=== PATIENT | female | born 1960 | race Caucasian/White ===

== ENCOUNTER → 2017-02-20 | Outpatient (CLI) | payer MEDICARE, OTHER ==
[2017-02-20 13:02] LABS: ABSOLUTE EOSINOPHILS # (AUTO) 0.1 10^3/uL (0.0-0.6); ABSOLUTE MONOCYTES (AUTO) 0.3 10^3/uL (0.1-1.4); ABSOLUTE NEUT (AUTO) 3.8 10^3/uL (1.7-8.2); BASOPHILS % (AUTO) 0.8 % (0-2); EOSINOPHILS % (AUTO) 1.2 % (0-6); HEMATOCRIT 43.9 % (36.0-47.0); HEMOGLOBIN 14.9 g/dL (12.0-15.5); HGB HCT DIFFERENCE 0.8; LYMPHOCYTES % (AUTO) 32.2 % (13-45); MEAN CORPUSCULAR HEMOGLOBIN 29.7 pg (27.0-33.4); MEAN CORPUSCULAR HGB CONC 33.9 g/dL (32.0-36.0); MEAN CORPUSCULAR VOLUME 88 fl (80-97); MONOCYTES % (AUTO) 5.4 % (3-13); RED BLOOD COUNT 5.02 10^6/uL (3.72-5.28); RED CELL DISTRIBUTION WIDTH 13.4 % (11.5-14.0); SEGMENTED NEUTROPHILS % (AUTO) 60.4 % (42-78); WHITE BLOOD COUNT 6.3 10^3/uL (4.0-10.5)
[2017-02-20 13:05] LABS: APPEARANCE,URINE CLEAR; BILIRUBIN,URINE NEGATIVE (NEGATIVE); GLUCOSE, URINE NEGATIVE (NEGATIVE); KETONES,URINE NEGATIVE (NEGATIVE); LEUKOCYTE ESTERASE,URINE NEGATIVE (NEGATIVE); NITRITE,URINE NEGATIVE (NEGATIVE); PROTEIN,URINE NEGATIVE (NEGATIVE); URINE SPECIFIC GRAVITY 1.011; UROBILINOGEN,URINE NEGATIVE mg/dL (<2.0)
[2017-02-20 13:06] LABS: PROTHROMBIN TIME 11.9 SEC (11.4-15.4)
[2017-02-20 13:07] LABS: PARTIAL THROMBOPLASTIN TIME 28.4 SEC (23.5-35.8)
== END ==
LOC: OD 11:59
PROVIDERS: ATTEND Pain Medicine Interventional Pain Medicine
DX: Z79.1 Long term (current) use of non-steroidal anti-inflammatories (NSAID) (principal)
CPT/HCPCS: 36415; 81001; 85025; 85610; 85730

== ENCOUNTER 2017-03-31 06:13 | Day surgery (SDC) | payer MEDICARE, OTHER ==
[2017-03-27 09:05] LABS: ABSOLUTE EOSINOPHILS # (AUTO) 0.1 10^3/uL (0.0-0.6); ABSOLUTE LYMPHOCYTES (AUTO) 1.7 10^3/uL (0.5-4.7); ABSOLUTE MONOCYTES (AUTO) 0.4 10^3/uL (0.1-1.4); ABSOLUTE NEUT (AUTO) 3.2 10^3/uL (1.7-8.2); BASOPHILS % (AUTO) 0.7 % (0-2); EOSINOPHILS % (AUTO) 1.5 % (0-6); HEMOGLOBIN 15.1 g/dL (12.0-15.5); HGB HCT DIFFERENCE 1.3; LYMPHOCYTES % (AUTO) 31.1 % (13-45); MEAN CORPUSCULAR HEMOGLOBIN 30.4 pg (27.0-33.4); MEAN CORPUSCULAR HGB CONC 34.3 g/dL (32.0-36.0); MEAN CORPUSCULAR VOLUME 89 fl (80-97); MONOCYTES % (AUTO) 7.1 % (3-13); RED BLOOD COUNT 4.96 10^6/uL (3.72-5.28); RED CELL DISTRIBUTION WIDTH 13.6 % (11.5-14.0); SEGMENTED NEUTROPHILS % (AUTO) 59.6 % (42-78); WHITE BLOOD COUNT 5.3 10^3/uL (4.0-10.5)
[2017-03-27 09:10] LABS: APPEARANCE,URINE SLIGHTLY-CLOUDY; BILIRUBIN,URINE NEGATIVE (NEGATIVE); GLUCOSE, URINE NEGATIVE (NEGATIVE); KETONES,URINE NEGATIVE (NEGATIVE); LEUKOCYTE ESTERASE,URINE NEGATIVE (NEGATIVE); NITRITE,URINE NEGATIVE (NEGATIVE); PROTEIN,URINE NEGATIVE (NEGATIVE); URINE SPECIFIC GRAVITY 1.026; UROBILINOGEN,URINE NEGATIVE mg/dL (<2.0)
[2017-03-27 09:17] LABS: PROTHROMBIN TIME 12.1 SEC (11.4-15.4)
[2017-03-27 09:18] LABS: PARTIAL THROMBOPLASTIN TIME 29.6 SEC (23.5-35.8)
--- NOTE | 2017-03-27 09:33 | RADIOLOGY REPORT (SQ) ---
EXAM DESCRIPTION: CHEST PA/LATERAL COMPLETED DATE/TIME: 03/27/2017 9:14 am REASON FOR STUDY: PRE OP COMPARISON: AP chest 11/10/2011 EXAM PARAMETERS: NUMBER OF VIEWS: two views TECHNIQUE: Digital Frontal and Lateral radiographic views of the chest acquired. RADIATION DOSE: NA LIMITATIONS: none FINDINGS: LUNGS AND PLEURA: Upper lobes are hyperinflated from obstructive lung disease. Flattening in the hemidiaphragms. No opacities, masses or pneumothorax. No pleural effusion. MEDIASTINUM AND HILAR STRUCTURES: No masses or contour abnormalities. HEART AND VASCULAR STRUCTURES: Heart normal size. No evidence for failure. BONES: Lower cervical fusion HARDWARE: Clips right upper quadrant post cholecystectomy OTHER: No other significant finding. IMPRESSION: Obstructive lung disease TECHNICAL DOCUMENTATION: JOB ID: [id number] [employer]- All Rights Reserved
--- NOTE | 2017-03-27 12:47 | EKG REPORT ---
SEVERITY:- NORMAL ECG - SINUS RHYTHM : Confirmed by: Magdalene Reynolds 27-Mar-2017 12:47:04
[~2017-03-31 06:13] MED LIST: CEFAZOLIN 1 GM/D5W RTU 1 GM/50 ML RTUPB IV PRN; LACTATED RINGERS 1000 ML IV PRN; LIDOCAINE 0.5% INJ-PF (5 MG/ML) 50 ML SDV SUBCUT PRN
[2017-03-31] MEDS ORDERED: FENTANYL CITRATE INJ/PF 100 MCG/2 ML AMPUL ONE ×2 (06:43)
[2017-03-31] MEDS ORDERED: MIDAZOLAM 2 MG/2 ML INJ ONE (06:43)
[2017-03-31] MEDS ORDERED: PROPOFOL INJ 200 MG/20 ML VIAL IV ONE (06:44)
[2017-03-31] MEDS ORDERED: LIDOCAINE 1% INJ-PF (10 MG/ML) 30 ML SDV ONE ×2 (06:44→07:50)
[2017-03-31] MEDS ORDERED: DEXMEDETOMIDINE INJ 80 MCG/20 ML VIAL IV ONE (06:44)
[2017-03-31] MEDS ORDERED: BUPIVACAINE HCL 0.5%-EPI 1:200000 INJ/PF 30 ML VIAL ONE ×2 (07:48→07:50)
[2017-03-31] MEDS ORDERED: SODIUM BICARBONATE 8.4% INJ 50 MEQ/50 ML DISP.SYRIN ONE (08:00)
[2017-03-31] MEDS ORDERED: FENTANYL CITRATE INJ/PF 100 MCG/2 ML AMPUL IV PRN ×3 (08:08)
[2017-03-31] MEDS ORDERED: PROMETHAZINE HCL INJ 25 MG/1 ML VIAL IV PRN ×2 (08:08)
[2017-03-31] MEDS ORDERED: MORPHINE SULFATE 10 MG/ML INJ IV PRN (08:08)
[2017-03-31] MEDS ORDERED: OXYCODONE-ACETAMINOPHEN 5-325 MG TABLET PO PRN ×2 (08:08)
[2017-03-31] MEDS ORDERED: DIPHENHYDRAMINE HCL 50 MG/ML VIAL IV PRN (08:08)
[2017-03-31] MEDS ORDERED: MEPERIDINE HCL/PF INJ 25 MG/1 ML DISP.SYRIN IV PRN (08:08)
[2017-03-31] MEDS ORDERED: CEFAZOLIN INJ 1 GM VIAL ONE (09:41)
[2017-03-31] MEDS ORDERED: OXYCODONE HCL IR 5 MG TABLET PO PRN (09:51)
--- NOTE | 2017-03-31 10:45 | OPERATIVE REPORT E ---
Operative Report NAME: RAYMUNDO ALONSO : 1960 AGE: 56Y DATE OF SURGERY: 03/31/2017 ROOM: PREOPERATIVE DIAGNOSIS: Post lumbar laminectomy pain syndrome. POSTOPERATIVE DIAGNOSIS: Post lumbar laminectomy pain syndrome. PROCEDURES PERFORMED: Percutaneous dual Octrode implantation with implantable pulse generator [employer] system. SURGEON: PABLO BOSE M.D. OPERATIVE DETAIL: The patient was accompanied by anesthesia staff to the operative suite where she was placed in prone position. All pressure points were checked and padded. Standard A-line monitors were applied. Perioperative Ancef was given. The patient was prepped and draped in sterile fashion using chlorhexidine gluconate solution, Ioban, and a universal drape. Additionally, a C-arm was draped into the field in sterile fashion. Planned implant insert sites were marked over the left buttock and midline incision site marked where previous needle insertions were just above the patient's previous laminectomy scar. Appropriate timeout was performed as per [facility] standards. The skin was anesthetized with buffered 1% lidocaine using a 25-gauge needle in both locations and deeper tissues were subsequently infiltrated with 0.25% Marcaine with epinephrine 1:100,000. Incision was made using an 11-blade scalpel in the midline and then blunt and electrocautery dissection were utilized to expose the prevertebral fascia. Adequate hemostasis was ensured. At this juncture, fluoroscopy was used to identify the previously marked T12-L1 interspace. A 3.5 inch, 25-gauge spinal needle was advanced using the planned tract for needle insertion site and anesthetized with 1% lidocaine. A Tuohy needle 17-gauge provided by the [employer] kit was advanced under intermittent AP and lateral fluoroscopic guidance to the T12-L1 interspace using a loss of resistance technique to normal saline. Once loss of resistance was obtained, the shielded MRI compatible Octrode lead was advanced through the needle easily into the posterior epidural space. The procedure was performed in the exact same fashion on the opposite side for 2 final leads implanted that were confirmed to be in the posterior epidural space via lateral fluoroscopic guidance. The leads were advanced using the steering device provided in the [employer] kit to the top of the T7 vertebral body spanning to mid T8. Again, posterior location in the epidural space was confirmed with lateral fluoroscopic guidance. At this point, the patient was awakened and the leads were connected to the stimulating device provided by the [employer] representatives in the room. The patient endorsed that she had excellent stimulation in all of her painful areas. The patient was then allowed to return to sleep. At this juncture, a pursestring suture was placed around each needle with 0 Mersilene suture. An additional stay suture for the anchoring device was placed slightly caudad to the pursestring suture. The needles were removed under continuous fluoroscopic guidance to ensure no migration of the leads. Subsequently, the anchoring device provided by the [employer] kit was advanced over the leads on both sides and inserted into the fascia. Pursestring suture was tied at this point and then the anchor was secured to the 0 Mersilene pursestring suture as well as the previously *------* stay suture. This was performed on both sides. At this point, a hex wrench was utilized to secure the lead to the anchor. At this juncture, attention was turned to the left buttock where incision was made using an 11-blade scalpel to create a pocket for the battery. Blunt and Bovie dissection were utilized to create an appropriately sized battery approximately 1 cm deep to skin. The battery was inserted and noted to be the appropriate size for the pocket. Tunneling was then performed from the buttock to the midline after anesthesia with 1% lidocaine along the tract using a 3.5 inch spinal needle. The tunneling device provided by the [employer] clearance representative was advanced from the buttock incision to the midline incision. Leads were then placed through the tunneling device into the buttock area and the leads were connected to the [employer] battery and secured with a hex wrench. Impedances were checked and noted to be excellent. At this point, both incisions were copiously irrigated using dilute Betadine solution. At this point, the leads with strain relief loops placed in the midline were secured using 3-0 Vicryl dissolvable suture and then closure ensued along both incisions with 3-0 Vicryl suture in interrupted fashion. The skin over the buttock was further closed using Ioban tape and glue and the midline incision was closed using sharlene. The incision sites were infiltrated with 0.25% bupivacaine at the end of the procedure. The patient tolerated the procedure well and was accompanied by anesthesia staff to the post-anesthesia recovery unit in stable condition. She will follow up with [facility] tomorrow at her convenience. DICTATING PHYSICIAN: PABLO BOSE M.D. [id number] PHY#: [id number] ID: [id number] JOB#: [id number] ACCT: [id number] cc:PABLO BOSE M.D. >
[2017-03-31 13:15] VITALS: BP 104/54
--- NOTE | 2017-03-31 14:22 | RADIOLOGY REPORT (SQ) ---
EXAM DESCRIPTION: THORACOLUMBAR SPINE AP/LAT; NO CHG FLUORO COMPLETED DATE/TIME: 03/31/2017 1:24 pm REASON FOR STUDY: SPINAL STIMULATOR ASSIST WITH FLUORO IN OR M54.17 RADICULOPATHY, LUMBOSACRAL JOSE ON Z79.899 OTHER LONGTERM (CURRENT) DRUG THERAPY Z79.01 LONGTERM (CURRENT) USE OF ANTICOAGULANTS COMPARISON: Two-view chest 03/27/2017 FLUOROSCOPY TIME: 3.7 minutes 9 series of digital radiographic images saved to PACS. TECHNIQUE: Intra-operative images acquired during surgical procedure to evaluate progress. NUMBER OF IMAGES: Cine fluoroscopic images. LIMITATIONS: None. FINDINGS: Intra procedural imaging and fluoro during spinal cord stimulator placement. Please see t he operative report for further details IMPRESSION: Intra procedural imaging and fluoro COMMENT: Quality ID 145: Final reports for procedures using fluoroscopy that document radiation exp osure indices, or exposure time and number of fluorographic images (if radiation exposure indices are not available) Please consult full operative report of the attending physician for description of the procedure. TECHNICAL DOCUMENTATION: JOB ID: [id number] [employer]- All Rights Reserved
--- NOTE | 2017-03-31 14:22 | RADIOLOGY REPORT (SQ) ---
EXAM DESCRIPTION: THORACOLUMBAR SPINE AP/LAT; NO CHG FLUORO COMPLETED DATE/TIME: 03/31/2017 1:24 pm REASON FOR STUDY: SPINAL STIMULATOR ASSIST WITH FLUORO IN OR M54.17 RADICULOPATHY, LUMBOSACRAL JOSE ON Z79.899 OTHER CUSTODIAL (CURRENT) DRUG THERAPY Z79.01 CUSTODIAL (CURRENT) USE OF ANTICOAGULANTS COMPARISON: Two-view chest 03/27/2017 FLUOROSCOPY TIME: 3.7 minutes 9 series of digital radiographic images saved to PACS. TECHNIQUE: Intra-operative images acquired during surgical procedure to evaluate progress. NUMBER OF IMAGES: Cine fluoroscopic images. LIMITATIONS: None. FINDINGS: Intra procedural imaging and fluoro during spinal cord stimulator placement. Please see t he operative report for further details IMPRESSION: Intra procedural imaging and fluoro COMMENT: Quality ID 145: Final reports for procedures using fluoroscopy that document radiation exp osure indices, or exposure time and number of fluorographic images (if radiation exposure indices are not available) Please consult full operative report of the attending physician for description of the procedure. TECHNICAL DOCUMENTATION: JOB ID: [id number] [employer]- All Rights Reserved
== END 2017-03-31 11:40 | disposition home or self-care (01) ==
LOC: OROUT 06:13
PROVIDERS: ATTEND Pain Medicine Interventional Pain Medicine
PROC: 0JH70MZ Insertion of Stimulator Generator into Back Subcutaneous Tissue and Fascia, Open Approach (ICD-10-PCS; principal; 2017-03-31 08:00)
DX: M96.1 Postlaminectomy syndrome, not elsewhere classified (principal); M54.17 Radiculopathy, lumbosacral region; Z79.899 Other long term (current) drug therapy; Z79.01 Long term (current) use of anticoagulants; Z79.51 Long term (current) use of inhaled steroids; J45.909 Unspecified asthma, uncomplicated; J43.9 Emphysema, unspecified; Z99.81 Dependence on supplemental oxygen; E78.00 Pure hypercholesterolemia, unspecified; I10 Essential (primary) hypertension; E03.9 Hypothyroidism, unspecified; Z87.891 Personal history of nicotine dependence; G89.4 Chronic pain syndrome; M51.37 Other intervertebral disc degeneration, lumbosacral region; M50.30 Other cervical disc degeneration, unspecified cervical region; M79.7 Fibromyalgia; G44.209 Tension-type headache, unspecified, not intractable; M19.90 Unspecified osteoarthritis, unspecified site; E07.9 Disorder of thyroid, unspecified
CPT/HCPCS: 63685; 93005; 36415; 85025; 85610; 85730; 81001; 71020; 72080; 93010; C1820; J2250; J3490 ×4; J0690 ×2; J3010; J2704; A9270; 300

== ENCOUNTER → 2017-04-22 | Outpatient (CLI) | payer MEDICARE, OTHER ==
[2017-04-22 12:05] LABS: APPEARANCE,URINE CLEAR; BILIRUBIN,URINE NEGATIVE (NEGATIVE); GLUCOSE, URINE NEGATIVE (NEGATIVE); KETONES,URINE NEGATIVE (NEGATIVE); LEUKOCYTE ESTERASE,URINE NEGATIVE (NEGATIVE); NITRITE,URINE NEGATIVE (NEGATIVE); PROTEIN,URINE NEGATIVE (NEGATIVE); URINE SPECIFIC GRAVITY 1.019; UROBILINOGEN,URINE NEGATIVE mg/dL (<2.0)
[2017-04-22 12:23] LABS: ANION GAP 10 (5-19); BLOOD UREA NITROGEN 10 mg/dL (7-20); CALCIUM 9.5 mg/dL (8.4-10.2); CARBON DIOXIDE 29 mmol/L (22-30); CHLORIDE 102 mmol/L (98-107); CREATININE RESULT 0.75 mg/dL (0.52-1.25); GLUCOSE 90 mg/dL (75-110); POTASSIUM 4.8 mmol/L (3.6-5.0); SODIUM 140.6 mmol/L (137-145)
== END ==
LOC: OD 11:24
PROVIDERS: ATTEND Internal Medicine Nephrology
DX: N28.9 Disorder of kidney and ureter, unspecified (principal); Z90.5 Acquired absence of kidney
CPT/HCPCS: 36415; 80048; 81001

== ENCOUNTER → 2018-03-18 | Outpatient (CLI) | payer MEDICARE, OTHER ==
[2018-03-18 08:37] LABS: FREE T4 (FREE THYROXINE) 1.59 ng/dL (0.78-2.19)
[2018-03-18 08:51] LABS: THYROID STIMULATING HORMONE 1.07 uIU/mL (0.47-4.68)
== END ==
LOC: OD 07:10
DX: E06.9 Thyroiditis, unspecified (principal)
CPT/HCPCS: 36415; 84439; 84443

== ENCOUNTER → 2018-04-21 | Outpatient (CLI) | payer MEDICARE, OTHER ==
[2018-04-21 08:28] LABS: APPEARANCE,URINE CLEAR; BILIRUBIN,URINE NEGATIVE (NEGATIVE); COLOR,URINE STRAW; GLUCOSE, URINE NEGATIVE (NEGATIVE); KETONES,URINE NEGATIVE (NEGATIVE); LEUKOCYTE ESTERASE,URINE NEGATIVE (NEGATIVE); NITRITE,URINE NEGATIVE (NEGATIVE); PROTEIN,URINE NEGATIVE (NEGATIVE); URINE SPECIFIC GRAVITY 1.004; UROBILINOGEN,URINE NEGATIVE mg/dL (<2.0)
[2018-04-22 12:11] LABS: ANION GAP 11 (5-19); BLOOD UREA NITROGEN 9 mg/dL (7-20); CALCIUM 9.2 mg/dL (8.4-10.2); CARBON DIOXIDE 21 mmol/L (22-30); CHLORIDE 109 mmol/L (98-107); GLUCOSE 78 mg/dL (75-110); POTASSIUM 4.3 mmol/L (3.6-5.0); SODIUM 140.9 mmol/L (137-145)
== END ==
LOC: OD 07:33
PROVIDERS: ATTEND Internal Medicine Nephrology
DX: N28.9 Disorder of kidney and ureter, unspecified (principal); Z90.5 Acquired absence of kidney
CPT/HCPCS: 36415; 80048; 81001

== ENCOUNTER → 2018-05-20 | Outpatient (CLI) | payer MEDICARE, OTHER ==
--- NOTE | 2018-05-20 10:51 | RADIOLOGY REPORT (SQ) ---
EXAM DESCRIPTION: PELVIS AP COMPLETED DATE/TIME: 05/20/2018 9:56 am REASON FOR STUDY: SEVERE PAIN ALONG THE RIGHT ILIAC CREST COMPARISON: None. NUMBER OF VIEWS: Single view pelvis. LIMITATIONS: None. FINDINGS: There is no acute or significant bone, joint or soft tissue abnormality. OTHER: Stimulator prior pack over the left flank with leads coursing superiorly and off the radiograp h. IMPRESSION: NORMAL STUDY. TECHNICAL DOCUMENTATION: JOB ID: [id number] Reading location - IP/workstation name: [email or web address]
== END ==
LOC: OD 09:44
PROVIDERS: ATTEND Pain Medicine Interventional Pain Medicine
DX: M25.551 Pain in right hip (principal)
CPT/HCPCS: 72170

== ENCOUNTER → 2018-06-26 | Outpatient (CLI) | payer MEDICARE, OTHER ==
[2018-06-26 09:32] LABS: APPEARANCE,URINE CLEAR; BILIRUBIN,URINE NEGATIVE (NEGATIVE); COLOR,URINE STRAW; GLUCOSE, URINE NEGATIVE (NEGATIVE); KETONES,URINE NEGATIVE (NEGATIVE); LEUKOCYTE ESTERASE,URINE NEGATIVE (NEGATIVE); NITRITE,URINE NEGATIVE (NEGATIVE); PROTEIN,URINE NEGATIVE (NEGATIVE); UROBILINOGEN,URINE NEGATIVE mg/dL (<2.0)
[2018-06-26 10:17] LABS: ANION GAP 14 (5-19); BLOOD UREA NITROGEN 11 mg/dL (7-20); CALCIUM 9.8 mg/dL (8.4-10.2); CARBON DIOXIDE 24 mmol/L (22-30); CHLORIDE 105 mmol/L (98-107); GLUCOSE 89 mg/dL (75-110); SODIUM 143.2 mmol/L (137-145)
== END ==
LOC: OD 08:32
PROVIDERS: ATTEND Internal Medicine Nephrology
DX: N28.9 Disorder of kidney and ureter, unspecified (principal); Z90.5 Acquired absence of kidney
CPT/HCPCS: 36415; 80048; 81001

== ENCOUNTER 2019-02-22 09:42 | Day surgery (SDC) | payer MEDICARE, OTHER ==
[~2019-02-22 09:42] MED LIST changes: +BESIFLOXACIN HCL 0.6% OPH SUSP 5 ML BOTTLE OD PRN; +BUPIVACAINE HCL 0.75% INJ/PF (7.5 MG/1 ML) 10 ML SDV OD PRN; -CEFAZOLIN 1 GM/D5W RTU 1 GM/50 ML RTUPB IV PRN; +CYCLOPENTOLATE 0.2%/PHENYLEPHRINE 1% OPH SOLN 2 ML OD PRN; +DORZOLAMIDE HCL 2%/TIMOLOL MALEAT 0.5% OPH SOLN 10 ML OD PRN; +KETOROLAC TROMETHAMINE 0.45% 4 DROP/0.4 ML DROPERETTE OD PRN; -LACTATED RINGERS 1000 ML IV PRN; -LIDOCAINE 0.5% INJ-PF (5 MG/ML) 50 ML SDV SUBCUT PRN; +LIDOCAINE 4% INJ/PF (40 MG/ML) 5 ML AMPUL OD PRN; +PHENYLEPHRINE/KETOROLAC 1%-0.3% 4 ML VIAL ONE; +TETRACAINE HCL 0.5% OPH SOLN 0.6 ML DROPERETTE OD PRN; +TROPICAMIDE 1% OPH SOLN 3 ML OD PRN
[2019-02-22] MEDS ORDERED: MIDAZOLAM 2 MG/2 ML INJ ONE (09:43)
[2019-02-22] MEDS: CYCLOPENTOLATE 0.2%/PHENYLEPHRINE 1% OPH SOLN 2 ML OD PRN ×3 (10:18→10:49)
[2019-02-22] MEDS: TROPICAMIDE 1% OPH SOLN 3 ML OD PRN ×3 (10:18→10:49)
[2019-02-22] MEDS: BESIFLOXACIN HCL 0.6% OPH SUSP 5 ML BOTTLE OD PRN ×4 (10:19→11:24)
[2019-02-22] MEDS: TETRACAINE HCL 0.5% OPH SOLN 0.6 ML DROPERETTE OD PRN ×2 (10:20→10:49)
[2019-02-22] MEDS ORDERED: FENTANYL CITRATE INJ/PF 100 MCG/2 ML AMPUL ONE (10:45)
[2019-02-22] MEDS ORDERED: ONDANSETRON HCL INJ/PF 4 MG/2 ML SDV ONE (10:45)
[2019-02-22] MEDS: LIDOCAINE 4% INJ/PF (40 MG/ML) 5 ML AMPUL OD PRN ×2 (11:01)
[2019-02-22] MEDS: BUPIVACAINE HCL 0.75% INJ/PF (7.5 MG/1 ML) 10 ML SDV OD PRN ×2 (11:01)
[2019-02-22] MEDS: CHONDR SU A NA/HYALUR INTRAOC KIT (SURGICARE) ONE ×2 (11:13)
[2019-02-22] MEDS: EPINEPHRINE INJ/PF 1 MG/1 ML AMPULE ONE ×2 (11:13)
[2019-02-22] MEDS: LIDOCAINE 1% INJ-PF (10 MG/ML) 30 ML SDV ONE ×2 (11:13)
[2019-02-22] MEDS: DORZOLAMIDE HCL 2%/TIMOLOL MALEAT 0.5% OPH SOLN 10 ML OD PRN ×2 (11:24)
--- NOTE | 2019-02-22 12:25 | [facility] OPERATIVE REPORT E ---
[facility] Operative Report NAME: RAYMUNDO ALONSO AGE: 58Y DATE OF SURGERY: 02/22/2019 ROOM: PREOPERATIVE DIAGNOSIS: CATARACT, RIGHT EYE. POSTOPERATIVE DIAGNOSIS: CATARACT, RIGHT EYE. PROCEDURE PERFORMED: Phacoemulsification with posterior chamber intraocular lens, right eye. SURGEON: PETER HUGHES M.D. ANESTHESIA: Topical with MAC. INDICATIONS FOR SURGERY: Difficulty with glare with night driving. PROCEDURE: The patient was brought to the Operating Room and placed on the operative table. Following tetracaine drops, topical anesthesia was administered. This consisted of instrument wipe pledgets soaked in a solution of 4% Xylocaine mixed with 0.75% Marcaine in a 1:2 ratio. A 2 x 1 cm pledget was placed in the superior fornix. A 1 x 1 cm pledget was placed in the inferior fornix. The eye was patched shut for 5 minutes. The patch was removed. The eye was sterilely prepped and draped in the usual manner. Lid speculum was placed in the eye. The pledgets were removed. 4-0 black silk sutures were placed around the superior and the inferior rectus muscles to be used as traction. A conjunctival peritomy was made at the 10 o'clock position. Hemostasis was obtained with bipolar cautery. A posterior limbal groove was created using a crescent knife and dissected anteriorly towards the cornea. A sharp point blade was used to create a paracentesis site at the 2 o'clock position. A 2.4 mm keratome was used to enter the anterior chamber through the groove. Viscoelastic was injected into the anterior chamber. An anterior capsulotomy was performed using Utrata forceps in a capsulorrhexis fashion. Hydrodissection and hydrodelineation were performed. Phacoemulsification was performed in [id number]-[id number] technique. Total phaco time 1.92 CDE. Following this, the I/A unit was used to remove residual cortex. Viscoelastic was injected into the capsular bag. Intraocular lens model ZCB00, 22.5 diopters, serial number [id number] was placed in the capsular bag. The I/A unit was used to remove residual viscoelastic. The wound was seen to be watertight under high and low pressure, and no sutures were placed. The intraocular lens was well centered. The pressure was adjusted in the eye to normal pressure. The 4-0 black silk sutures and lid speculum were removed. The eye was shielded after Besivance drops were placed. The patient tolerated the procedure well and was sent to the recovery room in good condition. Omidria was in the irrigation solution. Nonpreserved lidocaine 0.1 mL was injected in the eye following the incision. A drop of Cosopt was placed in the eye at the end of the surgery. DICTATING PHYSICIAN: PETER HUGHES M.D. [id number] PHY#: [id number] ID: [id number] JOB#: [id number] ACCT: [id number] cc:PETER HUGHES M.D. >
--- NOTE | 2019-02-22 12:34 | [facility] DISCHARGE SUMMARY E ---
[facility] Discharge Summary NAME: RAYMUNDO ALONSO AGE: 58Y ADMITTED: 02/22/2019 DISCHARGED: FINAL DIAGNOSIS: Cataract, right eye. PROCEDURE PERFORMED: Phacoemulsification with posterior chamber intraocular lens, right eye. HOSPITAL COURSE: The patient is a 58-year-old lady who underwent uneventful cataract extraction with intraocular lens implant, right eye, on 02/22/2019. She will be discharged to home. She is instructed to resume preoperative medications; to take Tylenol as needed for discomfort; to keep her eye shielded; to use Durezol, Ilevro, and Besivance at 3 p.m. and 8 p.m.; to follow up in my office in 1 day. DICTATING PHYSICIAN: PETER HUGHES M.D. [id number] PHY#: [id number] ID: [id number] JOB#: [id number] ACCT: [id number] cc:PETER HUGHES M.D. >
== END 2019-02-22 12:05 ==
LOC: SC 09:42
PROVIDERS: ATTEND Ophthalmology
DX: H25.813 Combined forms of age-related cataract, bilateral (principal); H18.51 Endothelial corneal dystrophy; H35.363 Drusen (degenerative) of macula, bilateral; J44.9 Chronic obstructive pulmonary disease, unspecified; E03.9 Hypothyroidism, unspecified; E78.00 Pure hypercholesterolemia, unspecified; Z79.51 Long term (current) use of inhaled steroids; Z79.899 Other long term (current) drug therapy; E06.3 Autoimmune thyroiditis; Z90.5 Acquired absence of kidney; F17.210 Nicotine dependence, cigarettes, uncomplicated; G43.909 Migraine, unspecified, not intractable, without status migrainosus
CPT/HCPCS: 66984; V2632; J2250; J3490 ×4; A9270; J3010; J2405; C9447; J0171

== ENCOUNTER 2019-03-15 08:50 | Day surgery (SDC) | payer MEDICARE, OTHER ==
[~2019-03-15 08:50] MED LIST changes: -BESIFLOXACIN HCL 0.6% OPH SUSP 5 ML BOTTLE OD PRN; -BUPIVACAINE HCL 0.75% INJ/PF (7.5 MG/1 ML) 10 ML SDV OD PRN; +BUPIVACAINE HCL 0.75% INJ/PF (7.5 MG/1 ML) 10 ML SDV OS PRN; -CYCLOPENTOLATE 0.2%/PHENYLEPHRINE 1% OPH SOLN 2 ML OD PRN; -DORZOLAMIDE HCL 2%/TIMOLOL MALEAT 0.5% OPH SOLN 10 ML OD PRN; +FENTANYL CITRATE INJ/PF 100 MCG/2 ML AMPUL ONE; -KETOROLAC TROMETHAMINE 0.45% 4 DROP/0.4 ML DROPERETTE OD PRN; +KETOROLAC TROMETHAMINE 0.45% 4 DROP/0.4 ML DROPERETTE OS PRN; -LIDOCAINE 4% INJ/PF (40 MG/ML) 5 ML AMPUL OD PRN; +LIDOCAINE 4% INJ/PF (40 MG/ML) 5 ML AMPUL OS PRN; +MIDAZOLAM 2 MG/2 ML INJ ONE; -PHENYLEPHRINE/KETOROLAC 1%-0.3% 4 ML VIAL ONE; -TETRACAINE HCL 0.5% OPH SOLN 0.6 ML DROPERETTE OD PRN; -TROPICAMIDE 1% OPH SOLN 3 ML OD PRN
[2019-03-15] MEDS: CYCLOPENTOLATE 0.2%/PHENYLEPHRINE 1% OPH SOLN 2 ML OS PRN ×3 (09:25→09:45)
[2019-03-15] MEDS: TROPICAMIDE 1% OPH SOLN 3 ML OS PRN ×3 (09:25→09:45)
[2019-03-15] MEDS: TETRACAINE HCL 0.5% OPH SOLN 4 ML OS PRN ×3 (09:25→10:01)
[2019-03-15] MEDS: BESIFLOXACIN HCL 0.6% OPH SUSP 5 ML BOTTLE OS PRN ×4 (09:30→10:33)
[2019-03-15] MEDS: EPINEPHRINE INJ/PF 1 MG/1 ML AMPULE ONE ×2 (10:20)
[2019-03-15] MEDS: LIDOCAINE 1% INJ-PF (10 MG/ML) 30 ML SDV ONE ×2 (10:20)
[2019-03-15] MEDS: CHONDR SU A NA/HYALUR INTRAOC KIT (SURGICARE) ONE ×2 (10:20)
[2019-03-15] MEDS: DORZOLAMIDE HCL 2%/TIMOLOL MALEAT 0.5% OPH SOLN 10 ML OS PRN ×2 (10:33)
--- NOTE | 2019-03-15 11:11 | [facility] DISCHARGE SUMMARY E ---
[facility] Discharge Summary NAME: RAYMUNDO ALONSO AGE: 58Y ADMITTED: 03/15/2019 DISCHARGED: 03/15/2019 FINAL DIAGNOSIS: Cataract, left eye. HOSPITAL COURSE: The patient is a 58-year-old lady who underwent uneventful cataract extraction with intraocular lens implant, left eye, on 03/15/2019. She will be discharged to home. She was instructed to resume preoperative medications; to take Tylenol as needed for discomfort; to keep her eye shielded; to use Besivance, Durezol, and Ilevro at 3 p.m. and 8 p.m.; and to follow up in my office in 1 day. DICTATING PHYSICIAN: PETER HUGHES M.D. [id number] PHY#: [id number] ID: [id number] JOB#: [id number] ACCT: [id number] cc:PETER HUGHES M.D. >
--- NOTE | 2019-03-15 11:11 | [facility] OPERATIVE REPORT E ---
[facility] Operative Report NAME: RAYMUNDO ALONSO AGE: 58Y DATE OF SURGERY: 03/15/2019 ROOM: PREOPERATIVE DIAGNOSIS: Cataract, left eye. POSTOPERATIVE DIAGNOSIS: Cataract, left eye. PROCEDURE PERFORMED: Phacoemulsification with posterior chamber intraocular lens, left eye. SURGEON: PETER HUGHES M.D. ANESTHESIA: Topical with MAC. INDICATIONS FOR SURGERY: Difficulty driving due to glare. PROCEDURE: The patient was brought to the operating room and placed on the operative table. Following tetracaine drops, topical anesthesia was administered. This consisted of instrument wipe pledgets soaked in a solution of 4% Xylocaine mixed with 0.75% Marcaine in a 1:2 ratio. A 2 x 1 cm pledget was placed in the superior fornix. A 1 x 1 cm pledget was placed in the inferior fornix. The eye was patched shut for 5 minutes. The patch was removed. The eye was sterilely prepped and draped in the usual manner. Lid speculum was placed in the eye. The pledgets were removed and 4-0 black silk sutures were placed around the superior and the inferior rectus muscles to be used as traction. A conjunctival peritomy was made at the 10 o'clock position. Hemostasis was obtained with bipolar cautery. A posterior limbal groove was created using a crescent knife and dissected anteriorly towards the cornea. A sharp point blade was used to create a paracentesis site at the 2 o'clock position. A 2.4 mm keratome was used to enter the anterior chamber through the groove. Viscoelastic was injected into the anterior chamber. An anterior capsulotomy was performed using Utrata forceps in a capsulorrhexis fashion. Hydrodissection and hydrodelineation were performed. Phacoemulsification was performed in [id number]-bxy-[id number] technique. Total phaco time was 2.88 CDE. Following this, the I/A unit was used to remove residual cortex. Viscoelastic was injected into the capsular bag. Intraocular lens model ZCB00, 22.5 diopters, serial number [id number], was placed in the capsular bag. The I/A unit was used to remove residual viscoelastic. The wound was seen to be watertight under high and low pressure, and no sutures were placed. The intraocular lens was well centered. The pressure was adjusted in the eye to normal pressure. The 4-0 black silk sutures and lid speculum were removed. The eye was shielded after Besivance drops were placed. The patient tolerated the procedure well and was sent to the recovery room in good condition. A drop of Cosopt was placed in the eye at the end of surgery. DICTATING PHYSICIAN: PETER HUGHES M.D. [id number] PHY#: [id number] ID: [id number] JOB#: [id number] ACCT: [id number] cc:PETER HUGHES M.D. >
== END 2019-03-15 11:09 ==
LOC: SC 08:50
PROVIDERS: ATTEND Ophthalmology
DX: H25.812 Combined forms of age-related cataract, left eye (principal); Z96.1 Presence of intraocular lens; H18.51 Endothelial corneal dystrophy; J44.9 Chronic obstructive pulmonary disease, unspecified; E07.9 Disorder of thyroid, unspecified; Z99.81 Dependence on supplemental oxygen; Z90.5 Acquired absence of kidney; Z79.51 Long term (current) use of inhaled steroids
CPT/HCPCS: 66984; J2250; J3490 ×5; A9270; J0171; J3010; V2632

== ENCOUNTER → 2019-06-29 | Outpatient (CLI) | payer MEDICARE, OTHER ==
--- NOTE | 2019-06-30 12:01 | XCELERA REPORT ---
[address] [address] Lower Extremity Arterial Evaluation Name: RAYMUNDO ALONSO Age: 58 yrs Gender: Female : 1960 Patient Status: Outpatient Patient Location: [facility] Study Date: 06/29/2019 11:11 AM Procedure: A color flow and duplex scan of the lower extremity arteries was performed on the left with velocity and waveform anaylsis. Reason For Study: KIARA PVKat Ordering Physician: PABLO BOSE Performed By: Tomas Greene Measurements and Calculations Right Left FIELD PIPELINES SUPERVISOR PSV 104.3 cm/sec Prox PFA PSV -84.3 cm/sec Prox SFA PSV 83.0 cm/sec Mid SFA PSV -103.1cm/sec Dist SFA PSV -68.0 cm/sec Prox Pop A PSV 50.5 cm/sec Dist BERTHA PSV 48.5 cm/sec Prox MIXING MACHINE TENDER CORK GASKET PSV 34.0 cm/sec Mid MIXING MACHINE TENDER CORK GASKET PSV 8.6 cm/sec Dist MIXING MACHINE TENDER CORK GASKET PSV 24.8 cm/sec Dist Twan A 63.6 cm/sec PSV Zhang Pedis PSV 35.4 44.9 cm/sec Left Side Arterial Evaluation Normal velocity and triphasic waveforms noted from the Common Femoral artery to the Anterior Tibial. Monophasic with very low velocity in the mid Posterior Tibial . Ankle Brachial index not ordered. Interpretation Summary Mild hemodynamically significant lesions in the left lower extremity only, on duplex imaging, at rest. Duplex imaging indicates adequate looking flow to the infrageniculate via Peroneal and Anterior tibial, despite significant disease in the Posterior Tibial artery,. : PABLO BOSE > Colby Larry
== END ==
LOC: SP 10:50
PROVIDERS: ATTEND Pain Medicine Interventional Pain Medicine
DX: I73.9 Peripheral vascular disease, unspecified (principal)
CPT/HCPCS: 93926